=== PATIENT | male | born 1955 | race African-American/Black ===

== ENCOUNTER 2023-10-08 10:24 | Day surgery (SDC) | payer OTHER ==
[2023-10-07 09:38] VITALS: BMI 27.0
[2023-10-08] MEDS ORDERED: PROPOFOL 0 ML ONE (13:24)
[2023-10-08] MEDS ORDERED: PROPOFOL 20 ML ONE ×2 (13:50→13:55)
== END 2023-10-08 14:00 | disposition home or self-care (01) ==
LOC: CSHSDC 10:24
PROVIDERS: ATTEND Internal Medicine Gastroenterology
PROC: 0DJD8ZZ Inspection of Lower Intestinal Tract, Via Natural or Artificial Opening Endoscopic (ICD-10-PCS; principal; 2023-10-08)
DX: Z12.11 Encounter for screening for malignant neoplasm of colon (principal); M19.90 Unspecified osteoarthritis, unspecified site; E78.5 Hyperlipidemia, unspecified; N40.0 Benign prostatic hyperplasia without lower urinary tract symptoms; G47.00 Insomnia, unspecified; Z86.010 Personal history of colon polyps; Z96.652 Presence of left artificial knee joint; Z98.890 Other specified postprocedural states; Z79.899 Other long term (current) drug therapy
CPT/HCPCS: J2704